=== PATIENT | female | born 1985 | race Hispanic/Latino ===

== ENCOUNTER 2017-07-17 15:09 | Emergency (ER) | payer OTHER ==
[2017-07-17 15:28] VITALS: BMI 24.0
[2017-07-17 15:29] VITALS: TEMP 98.4
[2017-07-17 16:19] LABS: BASO # 0.02 K/mm3 (0.0-2.0); BASO % 0.3 % (0.0-3.0); EOS # 0.2 (0.0-0.7); EOS % 2.9 % (1.5-5.0); GRAN # 3.57 (1.4-6.5); GRAN % 60.7 % (50.0-68.0); HEMOGLOBIN 13.5 g/dL (12.0-16.0); LYMPH # 1.7 (1.2-3.4); LYMPH % 29.3 % (22.0-35.0); MEAN CELL VOLUME 93.5 fl (80.0-105.0); MEAN CORPUSCULAR HEMOGLOBIN 32.3 pg (25.0-35.0); MEAN CORPUSCULAR HGB CONC 34.5 g/dl (31.0-37.0); MEAN PLATELET VOLUME 9.9 fl (7.0-11.0); MONO # 0.4 (0.1-0.6); MONO % 6.8 % (1.0-6.0); RBC 4.18 10^6/uL (3.5-6.1); RED CELL DISTRIBUTION WIDTH 11.9 % (11.5-14.5); WHITE BLOOD COUNT 5.9 10^3/ul (4.5-11.0)
[2017-07-17 16:30] LABS: ALB/GLOB RATIO 1.9 (1.1-1.8); ALBUMIN 4.6 g/dL (3.0-4.8); ALT/SGPT 32 U/L (7-56); AST/SGOT 33 U/L (14-36); BLOOD UREA NITROGEN 9 mg/dL (7-21); CALCIUM 9.2 mg/dL (8.4-10.5); GFR AFRICAN-AMERICAN > 60; GFR NON-AFRICAN AMERICAN > 60
--- NOTE | 2017-07-17 17:20 | ED PDOC ---
Arrival/HPI - General Historian: Patient <Berhane Alford - Last Filed: 07/17/17 19:06> - History of Present Illness Activities at Onset: Rest Context: Home <Tanner Marie - Last Filed: 07/17/17 21:52> - General Chief Complaint: Dizziness/Lightheaded Time Seen by Provider: 07/17/17 15:33 - History of Present Illness Narrative History of Present Illness (Text): 07/17/17 14:02 This is a 32 yo F with PMH of hypothyroidism 2/2 Rick thyroiditis who presents with complaints of dizziness/lightheadedness, right-sided facial paresthesia, and sensation of right facial muscle paresis without actual paresis. Reports symptoms began this AM after awakening. Admits to Q4 scheduled use of oral benadryl since yesterday morning, including waking up overnight to take a scheduled dose, due to itchiness from multiple bug bites over the weekend. Reports in Count includes the [facility] this past weekend for a wed, experienced several bug bites, but never noted any ticks, no new rashes (had small eczema rash treated with hydrocortisone cream which was already resolving and completed resolving yesterday) or erythema migrans. Denies headache, room spinning, changes in vision, syncope/near syncope. Believed her symptoms were due to use of an herbal diuretic given to her by a friend today, which she took approximately 2 hours prior to symptom onset. Took due to bilateral LE edema (L>R), which she chronically experiences, and has been worked up for in the past by her PMD. Reports compliance with her Synthroid dosing, not skipping doses or doubling down to make up for missed dose. Reports shortness of breath and palpitations at onset of facial symptoms , since resolved. All other ROS in 12-system review negative. PMH: as above PSH: denies Fam Hx: denies Soc Hx: admits tobacco (1-2 cig daily x 6 years), social EtOH (positive binge episode 4 days prior during a wedding), admits infrequent marijuana use (last used in [place] 2 weeks prior) but denies any other illicits or IVDA PMD: Cadniyah (Berhane Alford) Past Medical History - Provider Review Nursing Documentation Reviewed: Yes - Travel History If Yes, travel location?: [place] - Infectious Disease Hx of Infectious Diseases: None - Cardiac Hx Cardiac Disorders: No - Pulmonary Hx Respiratory Disorders: No - Neurological Hx Neurological Disorder: No - HEENT Hx HEENT Disorder: No - Renal Hx Renal Disorder: No - Endocrine/Metabolic Hx Endocrine Disorders: Yes Hx Hypothyroidism: Yes - Hematological/Oncological Hx Blood Disorders: No - Integumentary Hx Dermatological Disorder: No - Musculoskeletal/Rheumatological Hx Musculoskeletal Disorders: No - Gastrointestinal Hx Gastrointestinal Disorders: No - Genitourinary/Gynecological Hx Genitourinary Disorders: No - Psychiatric Hx Psychophysiologic Disorder: No Hx Substance Use: No <Berhane Alford - Last Filed: 07/17/17 19:06> - Travel History Have you recently traveled outside [place] w/in the past 3 mons?: No - Reproductive Currently : Unknown <Tanner Marie - Last Filed: 07/17/17 21:52> Family/Social History - Physician Review Nursing Documentation Reviewed: Yes Family/Social History: No Known Family HX Smoking Status: Light Smoker < 10 Cigarettes Daily Hx Alcohol Use: Yes Frequency of alcohol use: Socially Hx Substance Use: No <Berhane Alford - Last Filed: 07/17/17 19:06> Hx Substance Use Treatment: No <Tanner Marie - Last Filed: 07/17/17 21:52> Allergies/Home Meds <Berhane Alford - Last Filed: 07/17/17 19:06> <Tanner Marie - Last Filed: 07/17/17 21:52> Allergies/Adverse Reactions: Allergies No Known Allergies Allergy (Verified 07/17/17 15:28) Home Medications: Home Meds Medication Instructions Recorded Confirmed Levothyroxine [Synthroid] 150 mcg PO DAILY 07/17/17 07/17/17 Review of Systems - Physician Review All systems were reviewed & negative as marked: Yes (as per HPI) - Review of Systems Eyes: Normal. absent: Vision Changes ENT: Normal. absent: Hearing Changes Respiratory: Normal. absent: SOB (at onset of other symptoms, since resolved), Cough, Wheezing Cardiovascular: Normal. absent: Palpitations (at onset of symptoms only, since resolved), Calf Pain, GRAHAM, Syncope Gastrointestinal: Normal. absent: Abdominal Pain, Nausea, Vomiting Musculoskeletal: Normal. absent: Back Pain, Neck Pain Skin: Pruritis, Other (multiple scattered bug bites across arms and legs, no acute cellulitis appreciated). absent: Normal Neurological: Dizziness <Berhane Alford - Last Filed: 07/17/17 19:06> - Review of Systems Endocrine: Normal Hemo/Lymphatic: Normal Psychiatric: Normal <Tanner Marie - Last Filed: 07/17/17 21:52> Physical Exam Vital Signs Reviewed: Yes Temperature: Afebrile Blood Pressure: Normal Pulse: Regular Respiratory Rate: Normal Appearance: Positive for: Well-Appearing, Non-Toxic, Uncomfortable (2/2 anxiety) Pain Distress: None Mental Status: Positive for: Alert and Oriented X 3, other (anxious) Finger Stick Blood Glucose: 76 - Systems Exam Head: Present: Atraumatic, Normocephalic Pupils: Present: PERRL. No: Sluggish, Non-Reactive, Pinpoint Extroacular Muscles: Present: EOMI. No: Gaze Palsy, Entrapment Conjunctiva: Present: Normal. No: Injected, Icteric Mouth: Present: Moist Mucous Membranes, Normal Lips, Normal Tounge, Normal Teeth. No: Dry, Drooling Pharnyx: Present: Normal. No: ERYTHEMA, EXUDATE, Peritonsilar Swelling, Uvular Deviation Nose (External): Present: Atraumatic. No: Abrasion, Laceration Nose (Internal): Present: Normal Inspection, No Active Bleeding. No: Epistaxis Neck: Present: Normal Range of Motion, Trachea Midline, Other (palpable but not grossly enlarged or nodular thyroid, no acute tenderness to palpation of thyroid ). No: MIDLINE TENDERNESS, JVD Respiratory/Chest: Present: Clear to Auscultation, Good Air Exchange. No: Respiratory Distress, Accessory Muscle Use, Wheezes, Decreased Breath Sounds, Rales, Rhonchi, Tachypneic, Tender to Palpation Cardiovascular: Present: Regular Rate and Rhythm, Normal S1, S2. No: Murmurs, Irregular Rhythm, Tachycardic, Bradycardic Abdomen: Present: Normal Bowel Sounds. No: Tenderness, Distention Back: Present: Normal Inspection Upper Extremity: Present: Normal Inspection, Normal ROM, NORMAL PULSES. No: Cyanosis, Edema, Tenderness, Swelling, Erythema, Deformity Lower Extremity: Present: Normal Inspection, NORMAL PULSES, Normal ROM. No: Edema, CALF TENDERNESS, Cyanosis, Tenderness, Swelling, Erythema, Deformity Neurological: Present: GCS=15, CN II-XII Intact, Speech Normal, Motor Func Grossly Intact, Normal Sensory Function, Normal 2Pt Descrimination, Other (5/5 muscle strength in all bilateral UE and LE testing, 5/5 nurse extern strength, no appreciate UE or LE ataxia on testing, normal and appropriate 2 point discrimitation and left/right discrimination, no gross facial muscle flaccidity or neuro-motor deficit appreciated on testing, speech normal/not slurred, no facial droop, no uvular deviation) Skin: Present: Warm, Dry, Normal Color, Other (extensive and scattered bug bites along extremities, but no conrad cellulitis or rashes appreciated) Psychiatric: Present: Alert, Oriented x 3, Normal Insight, Normal Concentration , Anxious <Berhane Alford - Last Filed: 07/17/17 19:06> <Tanner Marie - Last Filed: 07/17/17 21:52> Vital Signs Temp Pulse Resp BP Pulse Ox 07/17/17 19:40 100 07/17/17 19:39 78 17 132/78 100 07/17/17 19:32 82 18 136/88 100 07/17/17 17:27 74 18 128/88 99 07/17/17 15:29 98.4 F 71 18 135/94 H 100 Medical Decision Making Reassessment Condition: Re-examined, Improved <Berhane Alford - Last Filed: 07/17/17 19:06> Re-evaluation Time: 19:00 - Lab Interpretations I have reviewed the lab results: Yes Interpretation: All labs normal - RAD Interpretation Fundraising Consultant: Radiologist - EKG Interpretation Interpreted by ED Physician: Yes Type: 12 lead EKG Comparison: No previous EKG avail. <Tanner Marie - Last Filed: 07/17/17 21:52> ED Course and Treatment: 07/17/17 14:38 Ddx: Vasovagal reaction vs TIA vs Anxiety-related vs 2/2 anti-cholinergic side effects, less likely true allergic reaction given rapid resolution of symptoms prior to presentation, no flushing/wheezing/anaphylaxis appreciable on exam. CBC, CMP, Mg, Phos obtained, f/u EKG ordered, f/u TSH ordered given hx of Rick's on Synthroid UA to rule out UTI 07/17/17 15:17 EKG only notable for mild QTc prolongation to 460's, otherwise unremarkable Will obtain Head CT at patient's insistence Labs unremarkable, no leukocytosis, electrolytes wnl, TSH wnl UA notable for Trace Leuk esterase, Many bacteria, 5-10 WBCs/hpf, but also 6-8 Epi cells/hpf, so likely dirty catch 07/17/17 19:06 CT head unremarkable Patient denies any urinary sx including hematuria, dysuria, or frequency. No indication for abx at this time. Cleared for discharge, instructed to avoid benadryl due to anticholinergic effects, rec only strict antihistamine medications (Claritin, Zyrtec, etc). Instructed to follow up with PMD within 1 week of discharge. Expressed understanding and agreement. Patient to be discharged. Seen, reviewed, and discussed with attending, Dr. Marie. (Berhane Alford) 07/17/17 Patient Seen With Resident: In agreement with resident note which contains more details about the patient. Patient was seen and evaluated with resident. Came up with plan and treatment together. I performed the hx and physical exam of the patient and discussed their mgt with the RESIDENT. I reviewed the RESIDENT's NOTE and agree with the assessment and plan of care. NIH stroke scale ~ 0 pt alert/awake, Oriented x 3, no slurr speech pt remained comfortable/stable pt is made aware of her medical results pt is encouraged to cut back on benadryl use pt will f/u as directed pt will be discharged home (Tanner Marie) - Lab Interpretations Lab Results: 07/17/17 16:10 07/17/17 16:10 Lab Results 07/17/17 16:10: TSH 3rd Generation 0.72 07/17/17 16:10: Beta HCG, Quant < 2.39 07/17/17 16:10: Sodium 138, Potassium 3.9, Chloride 101, Carbon Dioxide 23, Anion Gap 17, BUN 9, Creatinine 0.7, Est GFR ( Amer) > 60, Est GFR (Non- Af Amer) > 60, Random Glucose 77, Calcium 9.2, Phosphorus 3.5, Magnesium 1.8, Total Bilirubin 0.5, AST 33, ALT 32, Alkaline Phosphatase 37 L, Total Protein 7.1, Albumin 4.6, Globulin 2.5, Albumin/Globulin Ratio 1.9 H 07/17/17 16:10: WBC 5.9, RBC 4.18, Hgb 13.5, Hct 39.1, MCV 93.5, MCH 32.3, MCHC 34.5, RDW 11.9, Plt Count 262, MPV 9.9, Gran % 60.7, Lymph % (Auto) 29.3, [place] % (Auto) 6.8 H, Eos % (Auto) 2.9, Baso % (Auto) 0.3, Gran # 3.57, Lymph # (Auto ) 1.7, [place] # (Auto) 0.4, Eos # (Auto) 0.2, Baso # (Auto) 0.02 07/17/17 15:35: Urine Color Yellow, Urine Appearance Clear, Urine pH 6.5, Ur Specific [place] <= 1.005, Urine Protein Negative, Urine Glucose (UA) Negative, Urine Ketones Negative, Urine Blood Negative, Urine Nitrate Negative, Urine Bilirubin Negative, Urine Urobilinogen 0.2, Ur Leukocyte Esterase Trace H, Urine RBC 0 - 2, Urine WBC 5 - 10, Ur Epithelial Cells 6 - 8, Urine Bacteria Many 07/17/17 15:22: POC Glucose (mg/dL) 69 - RAD Interpretation Narrative RAD Interpretations (Text): 07/17/[address] without contrast: Creator : Ivanna Chadwick MD Radiation dose: Total exam DLP = 946.68 mGy-cm. This CT exam was performed using one or more of the following dose reduction techniques: Automated exposure control, adjustment of the mA and/or kV according to patient size, and/or use of iterative reconstruction technique. FINDINGS: HEMORRHAGE: No intracranial hemorrhage. BRAIN: Bennett-white matter differentiation is preserved. There is no mass, mass effect or abnormal extra-axial fluid collection. VENTRICLES: The ventricles are normal in size, shape and configuration. CALVARIUM: The skull base and calvarium are normal. PARANASAL SINUSES: Predominantly clear. MASTOID AIR CELLS: Predominantly clear. OTHER FINDINGS: None. IMPRESSION: No acute intracranial abnormality. If there is a persistent focal neurologic deficit and an ongoing clinical concern for acute infarction, an MRI of the brain without intravenous contrast would be a more sensitive modality for evaluation of hyperacute/acute ischemic infarction. (Tanner Marie) Radiology Orders: 07/17/17 17:27 HEAD W/O CONTRAST [CT] Stat - EKG Interpretation EKG Interpretation (Text): 07/17/17 21:50 NSR at 65 bpm, normal axis, no ectopy, inverted T In leads V1-2, no st changes, BORDERLINE EKG; no old ekg to compare with (Tanner Marie) Disposition/Present on Arrival - Present on Arrival Any Indicators Present on Arrival: No History of DVT/PE: No History of Uncontrolled Diabetes: No Urinary Catheter: No History of Decub. Ulcer: No History Surgical Site Infection Following: None - Disposition Have Diagnosis and Disposition been Completed?: Yes Disposition Time: 19:15 Patient Plan: Discharge <RocíoBerhane - Last Filed: 07/17/17 19:06> - Present on Arrival Any Indicators Present on Arrival: No <Tanner Marie - Last Filed: 07/17/17 21:52> - Disposition Diagnosis: Anticholinesterase drug causing adverse effect, Numbness Disposition: HOME/ ROUTINE Condition: GOOD Discharge Instructions (ExitCare): Diphenhydramine (Systemic) Print Language: MAURITANIAN Additional Instructions: You were seen in the [facility] ED for facial numbness and abnormal sensation of the face and tongue. Lab work and a CT scan of your head were negative for any acute causes of these symptoms. They may be due to an excess use of Benadryl, leading to anti-cholinergic side effects. Please avoid any further benadryl use for 1 week, use over the counter antihistamines (i.e. Claritin) and hydrocortisone cream as needed for itchiness. Please continue to take your synthroid as previously prescribed. Please follow up with your PMD within 1 week of discharge from the ED. Please return to a hospital if you experience new or concerning symptoms. Referrals: Cony Gallegos MD [Primary Care Provider] - Follow up with primary Forms: [employer] ([place])
[2017-07-17 17:28] LABS: PH,URINE 6.5 (4.7-8.0); URINE BILIRUBIN NEGATIVE (NEGATIVE); URINE BLOOD NEGATIVE (NEGATIVE); URINE GLUCOSE (UA) NEGATIVE (NEGATIVE); URINE LEUKOCYTE ESTERASE TRACE Leu/uL (NEGATIVE); URINE PROTEIN NEGATIVE mg/dL (<30 mg/dL); URINE UROBILINOGEN 0.2 E.U./dL (<1 E.U./dL)
[2017-07-17 17:31] LABS: URINE APPEARANCE CLEAR (CLEAR); URINE COLOR YELLOW (YELLOW)
[2017-07-17 17:41] LABS: URINE BACTERIA MANY (NEG); URINE RBC 0 - 2 /hpf (0-2)
--- NOTE | 2017-07-17 18:43 | CT ---
PROCEDURE: CT HEAD WITHOUT CONTRAST. HISTORY: facial weakness, dizziness COMPARISON: None available. TECHNIQUE: Axial computed tomography images were obtained through the head/brain without intravenous contrast. Radiation dose: Total exam DLP = 946.68 mGy-cm. This CT exam was performed using one or more of the following dose reduction techniques: Automated exposure control, adjustment of the mA and/or kV according to patient size, and/or use of iterative reconstruction technique. FINDINGS: HEMORRHAGE: No intracranial hemorrhage. BRAIN: Bennett-white matter differentiation is preserved. There is no mass, mass effect or abnormal extra-axial fluid collection. VENTRICLES: The ventricles are normal in size, shape and configuration. CALVARIUM: The skull base and calvarium are normal. PARANASAL SINUSES: Predominantly clear. MASTOID AIR CELLS: Predominantly clear. OTHER FINDINGS: None. IMPRESSION: No acute intracranial abnormality. If there is a persistent focal neurologic deficit and an ongoing clinical concern for acute infarction, an MRI of the brain without intravenous contrast would be a more sensitive modality for evaluation of hyperacute/acute ischemic infarction.
[2017-07-17 19:32] VITALS: O2SAT 100
[2017-07-17 19:41] VITALS: BP 132/78; PULSE 78; RESP 17
--- NOTE | 2017-07-17 20:31 | CARD ---
APPROVED REPORT EKG Measurement Heart [id number] <Conclusion> Normal sinus rhythm Possible Left atrial enlargement Low voltage QRS Borderline ECG
== END 2017-07-17 19:40 | disposition home or self-care (01) ==
LOC: ED 15:09
DX: R20.0 Anesthesia of skin (principal); T44.0X5A Adverse effect of anticholinesterase agents, initial encounter; F17.210 Nicotine dependence, cigarettes, uncomplicated